=== PATIENT | female | born 1965 | race Caucasian/White ===

== ENCOUNTER → 2016-06-25 | Outpatient (CLI) | payer BC | DX: R10.11 Right upper quadrant pain (principal); Z90.710 Acquired absence of both cervix and uterus | CPT/HCPCS: 76705 ==

== ENCOUNTER → 2016-08-28 | Outpatient (CLI) | payer BC | LOC: KOH-I 10:19 | DX: R94.31 Abnormal electrocardiogram [ECG] [EKG] (principal) | CPT/HCPCS: 71020 ==

== ENCOUNTER → 2021-04-10 | Outpatient (CLI) | payer BC | LOC: EXRD 04-02 10:00 | DX: K76.0 Fatty (change of) liver, not elsewhere classified (principal) | CPT/HCPCS: 76700 ==